=== PATIENT | male | born 1970 | race Caucasian/White ===

== ENCOUNTER 2024-07-15 13:17 | Emergency (ER) | payer BC ==
[2024-07-15 13:23] VITALS: TEMP 97.2
--- NOTE | 2024-07-15 13:24 | ED ---
General Adult HPI - General Chief complaint: Neuro Symptoms/Deficit Stated complaint: L Face Numbness Time Seen by Provider: 07/15/24 13:24 Source: patient Mode of arrival: ambulatory Limitations: no limitations - History of Present Illness Initial comments: Jhonatan 3-year-old male who presents to the emergency department today via private vehicle for evaluation of the patient reports that for about the past week he has felt like there is numbness around his mouth worse on the right side than the left. Patient notes that when he tries to drink water or drinks it will drift off the right side of his mouth and that yesterday he was giving a speech and people noted that the right side of his mouth was drooping. Patient does note that last week he had some pain in his right ear he was seen in a virtual visit and started on amoxicillin. and on Tuesday was seen by nurse practitioner and started on azithromycin for a possible ear infection. Patient had advised them that at that time he felt like vision in his left eye was not normal and he was advised to go to ophthalmology office but after quite weight he was not able to be seen before he had to leave to go to work. Continues to feel like he is getting worsening drooping of right face. - Related Data Home Medications Medication Instructions Recorded Confirmed Atorvastatin [Lipitor] 10 mg PO DAILY 08/22/23 08/22/23 Cetirizine HCl [Zyrtec] 10 mg PO DAILY 08/22/23 08/22/23 ISOtretinoin [Zenatane] 20 mg PO DAILY 08/22/23 08/22/23 Multivitamin [Multivitamins] 1 each PO DAILY 08/22/23 08/22/23 Previous Rx's Medication Instructions Recorded predniSONE [Deltasone] 60 mg PO DAILY 7 Days #21 tab 07/15/24 valACYclovir HCL [Valtrex] 1,000 mg PO TID 7 Days #21 tablet 07/15/24 Allergies Allergy/AdvReac Type Severity Reaction Status Date / Time No Known Allergies Allergy Verified 08/22/23 12:50 Review of Systems ROS Statement: Those systems with pertinent positive or pertinent negative responses have been documented in the HPI. ROS Other: All systems not noted in ROS Statement are negative. 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 Patient is nontoxic and well-hydrated and is in no distress. HENT: Normocephalic, Atraumatic. EYES: PERRL, EOMI PULMONARY: Unlabored respirations. No audible rales rhonchi or wheezing was noted. CARDIOVASCULAR: There is a regular rate and rhythm without any murmurs gallops or rubs. ABDOMEN: Soft and nontender with normal bowel sounds. SKIN: Skin is clear with no lesions or rashes and otherwise unremarkable. : Deferred NEUROLOGIC: There is droop of the right side of the mouth eyebrows lift LEFT > RIGHT Able to close right eye and hold close against gentle traction Patient is alert and oriented x3. Moving all extremities spontaneously MUSCULOSKELETAL: Normal extremities with adequate strength and full range of motion. No lower extremity swelling or edema. No calf tenderness. PSYCHIATRIC: Normal psychiatric evaluation. Limitations: no limitations Course Vital Signs 07/15/24 07/15/24 07/15/24 13:21 14:00 15:13 Temperature 97.2 F L Pulse Rate 80 61 73 Respiratory 18 13 16 Rate Blood Pressure 116/73 130/83 121/87 O2 Sat by Pulse 98 97 98 Oximetry EKG Findings - EKG Comments: EKG Findings:: Created by me EKG obtained as part of the neurology workup EKG obtained at 1332 rate is 63 rhythm is sinus normal axis normal intervals NC 147 QRS 92 QTc 372 there are no acute ST elevations or depressions there is no evidence of acute ischemia infarction or pathologic arrhythmia. Medical Decision Making - Medical Decision Making Was pt. sent in by a medical professional or institution (, PA, DATA COLLECTION ASSOCIATE, urgent care, hospital, or fci...) When possible be specific @ -No Did you speak to anyone other than the patient for history (EMS, parent, family, police, friend...)? What history was obtained from this source @ -No Did you review nursing and triage notes (agree or disagree)? Why? @ -I reviewed and agree with nursing and triage notes Were old charts reviewed (outside hosp., previous admission, EMS record, old EKG, old radiological studies, urgent care reports/EKG's, fci records)? Report findings @ -No old charts were reviewed Differential Diagnosis (chest pain, altered mental status, abdominal pain women, abdominal pain men, vaginal bleeding, weakness, fever, dyspnea, syncope, headache, dizziness, GI bleed, back pain, seizure, CVA, palpatations, mental health)? @ -Differential CVA Ischemic stroke, hemorrhagic stroke, brain tumor, atypical migraine, Wernicke's encephalopathy, seizure, multiple sclerosis, meningitis, encephalitis, hypoglycemia, Guillain-Castro, electrolytes disturbance, myasthenia gravis.... This is not meant to be an all-inclusive list EKG interpreted by me (3pts min.). @ -As above X-rays interpreted by me (1pt min.). @ -None done CT interpreted by me (1pt min.). @ -CT of the brain with no mass or acute finding U/S interpreted by me (1pt. min.). @ -None done What testing was considered but not performed or refused? (CT, X-rays, U/S, labs)? Why? @ -None What meds were considered but not given or refused? Why? @ -None Did you discuss the management of the patient with other professionals (professionals i.e. , PA, DATA COLLECTION ASSOCIATE, lab, RT, psych nurse, foster care social worker, associate director financial aid, teacher, animal park code enforcement officer, caser in)? Give summary @ -No Was smoking cessation discussed for >3mins.? @ -No Was critical care preformed (if so, how long)? @ -No Were there social determinants of health that impacted care today? How? (Homelessness, low income, unemployed, alcoholism, drug addiction, transportation, low edu. Level, literacy, decrease access to med. care, detention, rehab)? @ -No Was there de-escalation of care discussed even if they declined (Discuss DNR or withdrawal of care, Hospice)? DNR status @ -No What co-morbidities impacted this encounter? (DM, HTN, Smoking, COPD, CAD, Cancer, CVA, ARF, Chemo, Hep., AIDS, mental health diagnosis, sleep apnea, morbid obesity)? @ -None Was patient admitted / discharged? Hospital course, mention meds given and route, prescriptions, significant lab abnormalities, going to OR and other pertinent info. @ -Discharged Patient was seen and evaluated history is obtained from patient, patient has 1 week of right-sided facial droop most prominent in the mouth though he cannot raise the right eyebrow as high as the left. He is able to close the right eye he has no pain in the right eye. He did note he feels like he has had some blurred vision in his left eye over the past few weeks and was referred to ophthalmology but has not been seen. Physical exam is concerning for a likely Bryant's palsy but given the vision changes in left eye head CT was obtained and is negative. Results were discussed with the patient. Initially I attempted to visualize the right TM is you been complaining of pain but it was occluded by wax, this was irrigated large amount of wax was removed and the TM was visible, there was some irritation of the ear canal likely due to the irrigation but no evidence of acute infection TM was normal. Discussed with the patient that ideally treatment would start in the first 72 hours of symptoms for Bryant's palsy but given that he is still symptomatic we can attempt treatment with 1 week of antivirals and steroids. Patient was agreeable. First dose was given here in the ER prescription was provided and the patient was discharged home with contact information for neurology for outpatient follow-up. Undiagnosed new problem with uncertain prognosis? @ -No Drug Therapy requiring intensive monitoring for toxicity (Heparin, Nitro, Insulin, Cardizem)? @ -No Were any procedures done? @ -No Diagnosis/symptom? @ -Bryant palsy Acute, or Chronic, or Acute on Chronic? @ -Default Uncomplicated (without systemic symptoms) or Complicated (systemic symptoms)? @ -Default Side effects of treatment? @ -No Exacerbation, Progression, or Severe Exacerbation? @ -No Poses a threat to life or bodily function? How? (Chest pain, [place], [place], pneumonia, PE, COPD, DKA, ARF, appy, cholecystitis, CVA, Diverticulitis, Homicidal, Suicidal, threat to staff... and all critical care pts) @ -No - Lab Data Result diagrams: 07/15/24 13:44 07/15/24 13:44 Lab Results 07/15/24 07/15/24 Range/Units 13:44 13:44 WBC 15.3 H (3.8-10.6) k/uL RBC 5.09 (4.30-5.90) m/uL Hgb 15.2 (13.0-17.5) gm/dL Hct 43.5 (39.0-53.0) % MCV 85.3 (80.0-100.0) fL MCH 29.8 (25.0-35.0) pg MCHC 34.9 (31.0-37.0) g/dL RDW 13.8 (11.5-15.5) % Plt Count 377 (150-450) k/uL MPV 7.1 Neutrophils % 77 % Lymphocytes % 15 % Monocytes % 4 % Eosinophils % 2 % Basophils % 0 % Neutrophils # 11.8 H (1.3-7.7) k/uL Lymphocytes # 2.3 (1.0-4.8) k/uL Monocytes # 0.6 (0-1.0) k/uL Eosinophils # 0.3 (0-0.7) k/uL Basophils # 0.1 (0-0.2) k/uL Sodium 138 (137-145) mmol/L Potassium 4.4 (3.5-5.1) mmol/L Chloride 103 (98-107) mmol/L Carbon Dioxide 26 (22-30) mmol/L Anion Gap 9 mmol/L BUN 20 (9-20) mg/dL Creatinine 0.87 (0.66-1.25) mg/dL Est GFR (CKD-EPI)AfAm >90 (>60 ml/min/1.73 sqM) Est GFR (CKD-EPI)NonAf >90 (>60 ml/min/1.73 sqM) Glucose 97 (74-99) mg/dL Calcium 9.5 (8.4-10.2) mg/dL Total Bilirubin 1.0 (0.2-1.3) mg/dL AST 19 (17-59) U/L ALT 24 (4-49) U/L Alkaline Phosphatase 93 (38-126) U/L Total Protein 7.1 (6.3-8.2) g/dL Albumin 4.4 (3.5-5.0) g/dL Disposition Clinical Impression: Bryant palsy Disposition: HOME SELF-CARE Condition: Stable Instructions (If sedation given, give patient instructions): Bryant Palsy (ED) Prescriptions: predniSONE [Deltasone] 60 mg PO DAILY 7 Days #21 tab valACYclovir HCL [Valtrex] 1,000 mg PO TID 7 Days #21 tablet Is patient prescribed a controlled substance at d/c from ED?: No Referrals: Eamon Reyes DO [Primary Care Provider] - 1-2 days Jessie Claros MD [Medical Doctor] - 1-2 days
[2024-07-15 13:53] LABS: Basophils # (A) 0.1 k/uL (0-0.2); Basophils % (A) 0 %; Eosinophils # (A) 0.3 k/uL (0-0.7); Eosinophils % (A) 2 %; HCT 43.5 % (39.0-53.0); HGB 15.2 gm/dL (13.0-17.5); Lymphocytes # (A) 2.3 k/uL (1.0-4.8); Lymphocytes % (A) 15 %; MCH 29.8 pg (25.0-35.0); MCHC 34.9 g/dL (31.0-37.0); MCV 85.3 fL (80.0-100.0); Mean Platelet Volume 7.1; Monocytes # (A) 0.6 k/uL (0-1.0); Monocytes % (A) 4 %; Neutrophils # (A) 11.8 k/uL (1.3-7.7); Neutrophils % (A) 77 %; Platelet Count 377 k/uL (150-450); RBC 5.09 m/uL (4.30-5.90); RDW 13.8 % (11.5-15.5); WBC 15.3 k/uL (3.8-10.6)
[2024-07-15 14:02] LABS: ALT 24 U/L (4-49); AST 19 U/L (17-59); African American GFR (CKD) >90 (>60 ml/min/1.73 sqM); Albumin 4.4 g/dL (3.5-5.0); Alkaline Phosphatase 93 U/L (38-126); Anion Gap 9 mmol/L; Blood Urea Nitrogen 20 mg/dL (9-20); Calcium 9.5 mg/dL (8.4-10.2); Carbon Dioxide 26 mmol/L (22-30); Chloride 103 mmol/L (98-107); Glucose 97 mg/dL (74-99); Non-African American GFR(CKD) >90 (>60 ml/min/1.73 sqM); Potassium 4.4 mmol/L (3.5-5.1); Sodium 138 mmol/L (137-145); Total Protein 7.1 g/dL (6.3-8.2)
--- NOTE | 2024-07-15 14:07 | XR ---
EXAMINATION TYPE: XR chest 2V DATE OF EXAM: 07/15/2024 2:01 PM COMPARISON: None CLINICAL INDICATION: Male, 53 years old with history of altered mental status; [facility] TECHNIQUE: XR chest 2V Frontal and lateral views of the chest. FINDINGS: Lungs/Pleura: Low lung volumes are present. There is no evidence of pleural effusion, focal consolida tion, or pneumothorax. Pulmonary vascularity: Unremarkable. Heart/mediastinum: Cardiomediastinal silhouette is unremarkable. Musculoskeletal: No acute osseous pathology. IMPRESSION: Low lung volumes with a generalized hazy appearance which could represent atelectasis. [facility], , 07/15/2024 2:05 PM
--- NOTE | 2024-07-15 14:10 | CT ---
EXAMINATION TYPE: CT brain wo con DATE OF EXAM: 07/15/2024 2:01 PM COMPARISON: None available. CLINICAL INDICATION: Male, 53 years old with history of Neuro deficit, acute persistent or progressin g, facial swelling and numbness x few days. TECHNIQUE: Brain: Axial CT images of the brain were obtained with coronal and sagittal reformats created and rev iewed. Contrast used: None. Oral contrast used: None. CT DLP: 1172.4 mGycm, Automated exposure control for dose reduction was used. FINDINGS: Brain: Extra-axial spaces: No abnormal extra-axial fluid collections. Ventricular system: Within normal limits Cerebral parenchyma: No acute intraparenchymal hemorrhage or mass effect. The toledo-white junction is well differentiated. Cerebellum: Unremarkable. Mass effect: No evidence of midline shift. Intracranial vasculature: unremarkable Soft tissues: Normal. Calvarium/osseous structures: No depressed skull fracture. Paranasal sinuses and mastoid air cells: Mild scattered paranasal sinus disease. Visualized orbits: Orbital contents are intact. IMPRESSION: No acute intracranial process. [facility], , 07/15/2024 2:08 PM
[2024-07-15] MEDS: valACYclovir HCL 1,000 MG TABLET PO STA (15:07)
[2024-07-15] MEDS: predniSONE 20 MG TAB PO STA (15:07)
[2024-07-15 15:14] VITALS: BP 121/87; PULSE 73; RESP 16
== END 2024-07-15 15:20 | disposition home or self-care (01) ==
LOC: EC 13:17
DX: G51.0 Bell's palsy (principal); F17.290 Nicotine dependence, other tobacco product, uncomplicated
CPT/HCPCS: 36415; 93005; 80053; 85025; 71046; 70450; 99285; J7512